=== PATIENT | male | born 1945 | race African-American/Black ===

== ENCOUNTER 2018-04-25 18:04 | Emergency (ER) | payer OTHER ==
[2018-04-25] MEDS ORDERED: SODIUM CHLORIDE 1,000 ML IV SCH (18:15)
[2018-04-25 18:48] LABS: BASO % 0.6 % (0-2.0); EOS % 0.8 % (0-4.5); HEMATOCRIT 40.9 % (35.4-49); HEMOGLOBIN 13.6 GM/dL (11.7-16.9); MCH 30.8 pg (25.7-33.7); MCHC 33.1 g/dl (32.0-35.9); MEAN PLT VOLUME 9.7 fl (7.5-11.1); MONO % 6.1 % (3.8-10.2); NEUT % 78.5 % (42.8-82.8); PLATELET COUNT 186 K/MM3 (134-434); RDW 13.5 % (11.9-15.9); WHITE BLOOD COUNT 8.2 K/mm3 (4.0-10.0)
[2018-04-25 18:52] VITALS: BMI 33.0
[2018-04-25 18:58] LABS: INR 1.03 (0.82-1.09); PROTHROMBIN TIME (PATIENT) 11.6 SEC (9.7-13.0)
--- NOTE | 2018-04-25 19:19 | CONSULT ---
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 H/O HTN but can't recall his meds. H/O Stroke "at least 2 or 3 years ago" with left sided weakness. According to patient, his baseline has been ambulatory at home with a cane ( able to go from bed to bathroom without assistance). Last seen in [facility] [place] 1 PM. He attempted to walk to the bathroom and his found him on the floor and called EMS. 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 MRI of brain (01/05/17): confirms the subacute right internal capsule CVA, moderate atrophy, ex vacuo hydrocephalus and diffuse white matter microvasculopathy SAM: Cor reg. Right carotid bruit (?). NEURO: Awake, alert, Ox3. Dysarthric but fluent. Identifies his left hand as MY thumb. Right gaze and head deviation. left facial. decreased gag. Left flacid hemiparesis. Increased reflexes on left. Left Babinski. IMP: Acute right cerebral dysfunction c/w Right ICA or MCA-territory CVA. Doubt Jeff's paralysis from new-onset seizure since Pt's old internal capsule CVA is not epileptogenic. SUGGEST: Stat MRI with DWI or perfusion CT with MR or CT angio (still in the window for thrombectomy). Telemetry or ICU. Normalize BP. Cardiology consultation. R/O WA. NPO for now. Thank you very much, Sergio Centeno MD
[2018-04-25 19:21] LABS: ALBUMIN 3.6 g/dl (3.4-5.0); ANION GAP 6 (8-16); BLOOD UREA NITROGEN 22 mg/dL (7-18); CALCIUM 8.9 mg/dL (8.5-10.1); CHLORIDE 108 mmol/L (98-107); CHOLESTEROL 192 mg/dL (50-200); CO2 27 mmol/L (21-32); CREATININE 1.7 mg/dL (0.7-1.3); GLUCOSE,RANDOM 263 mg/dL (74-106); SGPT/ALT 21 U/L (12-78); SODIUM 141 mmol/L (136-145); TRIGLYCERIDES 343 mg/dL (35-160)
[2018-04-25 19:23] LABS: ALK PHOS 126 U/L (45-117); BILIRUBIN,TOTAL 0.8 mg/dL (0.2-1.0); HDL CHOLESTEROL 50 mg/dL (40-60); TOT PROT 7.4 g/dl (6.4-8.2)
[2018-04-25 19:24] LABS: POTASSIUM 5.4 mmol/L (3.5-5.1); SGOT/AST 22 U/L (15-37)
--- NOTE | 2018-04-25 20:20 | PDOC ---
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 EMS reports that the patient was last known well at 1pm. EMS reports left sided weakness and left sided facial droop with afib on EKG and fingerstick of 252. (Bridget Rene) was contacted via phone at to obtain further history as patient is confused during history. states that the patient slid off the side of the bed today and that she was scared because he looked like he was about to pass out. states that patient 's weakness in his legs, facial droop and eye abnormalities are not new. Patient reports that he was walking with a cane yesterday. Patient also stated that he met myself yesterday later during examination. Patient denies fevers, chills, nausea, vomiting, abdominal pain, and dysuria. Past History - Past Medical History Allergies/Adverse Reactions: Allergies Allergy/AdvReac Type Severity Reaction Status Date / Time No Known Drug Allergies Allergy Verified 04/25/18 18:13 Home Medications: Ambulatory Orders Acetaminophen [Tylenol .Extra-Strength -] 500 mg PO Q4H PRN 12/02/14 Albuterol Sulfate [Proair Hfa -] 1 - 2 inh PO Q4H PRN 12/02/14 Amlodipine Besylate [Norvasc -] 5 mg PO DAILY 12/02/14 Docusate Sodium [Colace -] 200 mg PO DAILY 12/02/14 Glipizide [Glipizide ER] 2.5 mg PO DAILY 12/02/14 Metoprolol Succinate [Toprol XL -] 50 mg PO BID 12/02/14 Omeprazole [Prilosec] 20 mg PO DAILY 12/02/14 Sennosides [Senna -] 2 tab PO DAILY 12/02/14 Solifenacin Succinate [Vesicare] 5 mg PO DAILY 12/02/14 Aspirin/Dipyridamole [Aggrenox -] 1 combo PO BID #30 capsule 12/05/14 Bicalutamide [Casodex -] 50 mg PO DAILY #30 tablet 12/05/14 Atorvastatin Ca [Lipitor] 80 mg PO HS #30 tablet 01/08/17 Anemia: Yes Asthma: No Cancer: Yes (PROSTATE) CVA: Yes (L. HEMIPARESIS cva x 2) COPD: Yes Diabetes: Yes HTN: Yes Hypercholesterolemia: Yes Seizures: Yes Lung CA: No - Immunization History Immunization Up to Date: Yes - Suicide/Smoking/Psychosocial Hx Smoking Status: Yes Smoking History: Unknown if ever smoked Have you smoked in the past 12 months: No Number of Cigarettes Smoked Daily: 2 If you are a former smoker, when did you quit?: June 2012 Cigars Per Day: 0 Information on smoking cessation initiated: No 'Breaking Loose' booklet given: 06/06/12 Hx Alcohol Use: No Drug/Substance Use Hx: No Substance Use Type: None Hx Substance Use Treatment: No Neuro Specific PMHX - Complaint Specific PMHX Glaucoma: No Review of Systems - Review of Systems Able to Perform ROS?: No (2/2 clinical condition) *Physical Exam - Vital Signs Last Vital Signs Temp Pulse Resp BP Pulse Ox 97.8 F 85 18 159/99 98 04/25/18 18:08 04/25/18 18:08 04/25/18 18:08 04/25/18 18:08 04/25/18 18:08 - Physical Exam Comments: 04/25/18 20:39 GENERAL: Awake, alert, and oriented to self and place, not year or his age HEAD: No signs of trauma, normocephalic, atraumatic EYES: PERRLA, eyes deviated to right, no movement to left ENT: Auricles normal inspection, hearing grossly normal, nares patent, oropharynx clear without exudates. Moist mucosa NECK: Normal ROM, supple, no lymphadenopathy, JVD, or masses LUNGS: No distress, speaks full sentences, crackles in lungs bilaterally HEART: Irregular rhythm, normal S1 and S2, no murmurs, rubs or gallops, peripheral pulses normal and equal bilaterally. ABDOMEN: Soft, nontender, normoactive bowel sounds. No guarding, no rebound. No masses EXTREMITIES: Normal inspection, pain with rotation of left hip, pain in palpation of right hip. NEUROLOGICAL: Eyes deviated to right. L sided facial droop, L arm/leg paresis, no sensation in left arm and leg. Slurred speech. Gait deferred. Not oriented to year, oriented to self and location SKIN: Warm, Dry, normal turgor, no rashes or lesions noted. NIH Stroke Scale - Last Known Well Date/Time & Onset Date Last Known Well: 04/25/18 Time Last Known Well: 13:00 (per pt, not per ) - Initial Evaluation Level of consciousness: Alert Ask patient the month and their age: Answers one correctly Ask patient to open & close eyes; make fist and let go: Obeys both correctly Best gaze (horizontal eye movement): Forced deviation Visual field testing: Complete hemianopia Facial paresis (Show teeth/raise eyebrows/close eyes tight): Partial paralysis ( total or near paralysis of lower face) Motor Function: Left Arm: No movement Motor Function: Right Arm: Drift Motor Function: Left Leg: No movement Motor Function: Right Leg: Drift Limb Ataxia: Present in two limbs Sensory(Use pinprick test arms,legs,trunk,face/side to side): Severe to total sensory loss Best language (Describe picture, name items, read sentences): Mild to moderate aphasia Dysarthria (read several words): Mild to moderate slurring of words Extinction and Inattention: Profound lauren-inattention or extinction to more than one modality - Total Score NIH Stroke Scale Score: 25 Critical Care Time/MDM Note - Medical Decision Making Note: 04/25/18 20:43 Patient is 73M with 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 History confounded by patient's versus family's reports of his neuro deficits. DDx is broad, and includes, but is not limited to: syncope, UTI, stroke, pneumonia. Upon patient arrival, code dumont was activated. EMS reports glucose of 252. Patient's airway, breath and circulation was assessed and found to be adequate to immediately take to CT scan. CT scan was performed, my wet read in the room showed no bleed. Official CT read shows no acute intracranial pathology. EKG shows afib with rate of 94. QTc prolonged to 512. T-wave inversions in I, aVL, V4-V6. EKG from 09/28/17 shows sinus rhythm with PVCs, QTc prolonged to 491. T wave inversions in lateral leads again present. Dr Centeno consulted, went to bedside to evaluate patient. Dr Centeno informed of history gathered from prior notes and patient's . Dr Centeno requested CTA brain as per his note. CTA performed immediately. Cr noted to be mildly elevated, believe benefit of CTA for possible stroke outweighs risk of kidney injury from dye. Dr Flanagan in agreement. Labs show: Laboratory Tests 04/25/18 04/25/18 18:26 18:26 WBC 8.2 Hgb 13.6 Plt Count 186 Potassium 5.4 H D BUN 22 H Creatinine 1.7 H Troponin I < 0.02 CBC normal. Cr as noted. Troponin undetectable. K mildly elevated to 5.4, no EKG changes. CXR and CTA pending reads. 04/25/18 21:35 CTA shows M2 occlusion. Discussed with [facility] ED Attending (Rui) and Neuro ( Paco). Accepted transfer for possible thrombectomy. Imaging sent with patient. Discharge Disposition - Diagnosis Cerebrovascular accident (CVA) - Discharge Dispostion Disposition: TRANSFER ACUTE CARE/OTHER HOSP Condition at time of disposition: Critical Last Admission D/C Date: 01/09/17 - Referrals Referrals: Chris Alanis MD [Primary Care Provider] - - Patient Instructions - Post Discharge Activity - Transfer to Acute Care Facility Receiving Facility: [facility] Accepting Physician:: Rui
--- NOTE | 2018-04-25 21:45 | PDOC ---
Attending Attestation - Resident Resident Name: Aubrey Estrada - ED Attending Attestation I have performed the following: I have examined & evaluated the patient, The case was reviewed & discussed with the resident, I agree w/resident's findings & plan, Exceptions are as noted <Faustino Flanagan - Last Filed: 04/25/18 21:45> - HPI HPI: 04/25/18 21:52 The patient is a 73 year old male, who presents for return of stroke symptoms that he has had in previous visits. 04/25/18 21:56 - Physicial Exam PE: 04/25/18 21:56 GENERAL: Awake, alert, and oriented to self and place, not year or his age HEAD: No signs of trauma, normocephalic, atraumatic EYES: PERRLA, eyes deviated to right, no movement to left ENT: Auricles normal inspection, hearing grossly normal, nares patent, oropharynx clear without exudates. Moist mucosa NECK: Normal ROM, supple, no lymphadenopathy, JVD, or masses LUNGS: No distress, speaks full sentences, crackles in lungs bilaterally HEART: Irregular rhythm, normal S1 and S2, no murmurs, rubs or gallops, peripheral pulses normal and equal bilaterally. ABDOMEN: Soft, nontender, normoactive bowel sounds. No guarding, no rebound. No masses EXTREMITIES: Normal inspection, pain with rotation of left hip, pain in palpation of right hip. NEUROLOGICAL: Eyes deviated to right. L sided facial droop, L arm/leg paresis, no sensation in left arm and leg. Slurred speech. Gait deferred. Not oriented to year, oriented to self and location SKIN: Warm, Dry, normal turgor, no rashes or lesions noted. - Medical Decision Making 04/25/18 21:57 Documentation prepared by Paresh Hancock, acting as medical center representative for Faustino Flanagan DO. <Paresh Hancock - Last Filed: 04/25/18 21:57>
[2018-04-25 22:01] VITALS: BP 157/85; PULSE 73; TEMP 98
[2018-04-26 12:36] LABS: N-TERMINAL BNP 3049.36 pg/ml (5-125)
--- NOTE | 2018-04-26 16:19 | EKG ---
Test Reason : Blood Pressure : / mmHG Vent. Rate : 094 BPM Atrial Rate : 131 BPM P-R Int : 000 ms QRS Dur : 070 ms QT Int : 410 ms P-R-T Axes : 000 -05 157 degrees QTc Int : 512 ms ATRIAL FIBRILLATION PROLONGED QT ABNORMAL ECG WHEN COMPARED WITH ECG OF 28-SEP-2017 13:00, ATRIAL FIBRILLATION HAS REPLACED SINUS RHYTHM Confirmed by BROOKE CARRASCO MD ([id number]) on 04/26/2018 4:19:41 PM Referred By: Confirmed By:BROOKE CARRASCO MD
== END 2018-04-25 22:07 | disposition short-term general hospital (02) ==
LOC: JER 18:04
DX: I63.9 Cerebral infarction, unspecified (principal); I48.91 Unspecified atrial fibrillation; G81.01 Flaccid hemiplegia affecting right dominant side; R29.810 Facial weakness; I10 Essential (primary) hypertension; Z87.891 Personal history of nicotine dependence; E78.5 Hyperlipidemia, unspecified; E11.9 Type 2 diabetes mellitus without complications; Z79.84 Long term (current) use of oral hypoglycemic drugs; J44.9 Chronic obstructive pulmonary disease, unspecified; G40.909 Epilepsy, unspecified, not intractable, without status epilepticus; Z85.46 Personal history of malignant neoplasm of prostate; D86.2 Sarcoidosis of lung with sarcoidosis of lymph nodes; Z79.82 Long term (current) use of aspirin
CPT/HCPCS: 36415; 70450-TC; 70496-TC; 71045-TC-FY; 80053; 82465; 82550; 83605; 83718; 83721; 83880; 84478; 84484; 85025; 85610; 86850; 86900; 86901; 87040; 93005; 93010; 99285-25; J7030